=== PATIENT | female | born 1970 | race Caucasian/White ===

== ENCOUNTER → 2016-11-26 | Day surgery (SDC) | payer BC ==
[~2016-11-26] MED LIST: DEXT10CA10 PO; DEXT20CA7 PO; FENTANYL PF 100 MCG/2 ML VIAL. IV PRN; HYDROMORPHONE 2 MG/ML VIAL. IV PRN; IV RINGERS,LACTATED 1000ML 1,000 ML IV SCH; LIDOCAINE 1% 1 ML SYRINGE. ID PRN; LIDOCAINE 2% PF Vial for OR 5 ML VIAL. ONE; MORPHINE SULFATE 2 MG/ML DISP.SYRIN. IV PRN; MULT-245 PO; ONDANSETRON PF 4 MG/2 ML VIAL. IV PRN; PROCHLORPERAZINE 10 MG/2 ML VIAL. IV PRN; PROPOFOL 40 ML IV ONE
[2016-11-26 07:45] VITALS: BP 128/80
--- NOTE | 2016-11-26 10:20 | HP ---
ADMIT DATE: 11/26/2016 REFERRING PHYSICIAN: Judy Santana MD HISTORY OF PRESENT ILLNESS: This is a 46-year-old female whose past medical history is significant for IBS who was seen with increasing abdominal pain with bloating, belching and nausea. Weight has increased over 25 pounds in the past 8 months. No family history of celiac disease, IBD or colon cancer as well as the last colonoscopy that was approximately 8 years ago was normal. She has noticed increased fatigue as well as decreased night vision. With the continued issues, she requests additional evaluation. PAST MEDICAL HISTORY: IBS. ALLERGIES: None. MEDICATIONS: Include Adderall and multivitamin. FAMILY AND SOCIAL HISTORY: There is diabetes with paternal grandmother, mother had myocardial infarction, ovarian cancer with mother and maternal grandmother. She is a former smoker. She is a social drinker. PAST SURGICAL HISTORY: 4, para 3. REVIEW OF SYSTEMS: Per records. PHYSICAL EXAMINATION: GENERAL: Reveals a well-nourished, well-developed female who is alert, conversant in no acute distress. VITAL SIGNS: In the office included pulse 79, blood pressure 122/77. LUNGS: Clear. CARDIOVASCULAR: Reveals an S1, S2 without S3, S4 or appreciable murmur. ABDOMEN: Reveals a soft abdomen, normal bowel sounds with epigastric tenderness to deep palpation without appreciable hepatosplenomegaly. EXTREMITIES: Reveals no cyanosis, clubbing or edema. IMPRESSION: Abdominal pain, etiology is to be determined. Differential includes celiac ____ and malignancy. Therefore, I recommend upper endoscopy. If this is unrevealing, hepatobiliary imaging and CAT scan may be pursued. I would like to thank Dr. Santana for allowing us to consult and participate in this patient's care. PATRICIA PETTIT MD DR: MARY/jessica JOB#: [id number] / [id number]
--- NOTE | 2016-11-27 15:08 | PATHOLOGY ---
PATHOLOGY REPORT * * * * * * * * FINAL DIAGNOSIS: Duodenal biopsy: - No significant pathologic abnormalities. COMMENT: Sections of the duodenal biopsy reveal segments of duodenal and small intestine mucosa. Where best oriented, the mucosal villi appear normal. There are no sprue-like changes or significant inflammatory changes. (NILESM:; d/t: 11/27/16) REPORT ELECTRONICALLY SIGNED BY: Juice Chadwick M.D. DATE/TIME: 11/27/2016 15:07 * * * * * * * * GROSS PATHOLOGY: Received in formalin labeled "Yin Mcclure and duodenum," are multiple segments of mehta soft tissue measuring 1.8 x 0.8 x 0.3 cm in aggregate dimensions and ranging from 0.2 to 0.6 cm in maximum dimension. The specimen is submitted entirely in cassette A1. (TTL; 11/26/2016) INITIAL CPT CODE(S): A; 60590 Professional services performed by [facility] [place] [place] [address] Technical services performed by [facility] at [address] [place] [address]. SPECIMEN(S) RECEIVED: A.Duodenal biopsy CLINICAL HISTORY: Abdominal pain, r/o duodenitis PATIENT: YIN MCCLURE /AGE: 109/07/1970 (Age: 46) PATIENT #: [id number] ALT CASE #: SPECIMEN COLLECTION DATE: 11/26/2016 SPECIMEN RECEIVED DATE: 11/26/2016 [facility] - [address] [place] [address] - PHONE: [phone] * * * END OF REPORT * * *
== END | disposition home or self-care (01) ==
LOC: ENDOS 06:11
PROVIDERS: ATTEND Internal Medicine Gastroenterology
DX: K31.9 Disease of stomach and duodenum, unspecified (principal); Z72.89 Other problems related to lifestyle
CPT/HCPCS: 88305; J2704